=== PATIENT | male | born 2000 | race Two or more races ===

== ENCOUNTER 2024-01-07 01:21 | Emergency (ER) | payer MEDICAID, OTHER ==
[~2024-01-07] VITALS: Ht 175.3 cm; Wt 75.0 kg
[2024-01-07 01:26] VITALS: BP 138/86
[2024-01-07 01:40] VITALS: PULSE 87; RESP 16; O2SAT 99
== END 2024-01-07 01:48 ==
LOC: ER 01:21
DX: F10.129 Alcohol abuse with intoxication, unspecified (principal); V89.2XXA Person injured in unspecified motor-vehicle accident, traffic, initial encounter; Y93.I9 Activity, other involving external motion; Y92.89 Other specified places as the place of occurrence of the external cause; Y99.8 Other external cause status; Y90.0 Blood alcohol level of less than 20 mg/100 ml